=== PATIENT | male | born 1990 | race Caucasian/White ===

== ENCOUNTER 2021-08-03 15:22 | Emergency (ER) | payer MEDICAID, OTHER ==
[~2021-08-03] VITALS: Ht 167.7 cm; Wt 68.1 kg
[~2021-08-03 15:22] MED LIST: ACHD5005 PO; ACYC200C PO; ACYC2CRE TP; IBP800T PO; PENI500T PO
--- NOTE | 2021-08-03 15:39 | ED Syncope ---
General Chief Complaint: Dizziness/Syncope Stated Complaint: GEN WEAKNESS; SYNCOPAL EPISODE Source of Information: Patient, EMS Exam Limitations: No Limitations History of Present Illness Date Seen by Provider: Aug 03, 2021 Time Seen by Provider: 15:18 Initial Comments 31-year-old male with what he states only history is mental health issues coming in via EMS due to exhaustion. The patient states he was in [place], his son is in [place], and he does not have a vehicle and wanted to see him. He began to walk to [place] today because he thought it was cool enough. He became very hot and tired, and says he might of passed out. He then called EMS. On EMS arrival he was walking already, and sat down when he saw them. Vitals were normal per EMS. He did not receive any medications. He is not having any chest pain, shortness of breath, focal weakness or numbness, abdominal pain, nausea, vomiting, diarrhea, fever, chills, or any other concerns. He states he feels back to his baseline right now and was just tired. Of note, his heart rate has been low, and he states is constantly jogging and exercising. Allergies and Home Medications Allergies Coded Allergies: Ziprasidone Mesylate (Verified Allergy, 02/21/13) ziprasidone HCl (Verified Allergy, 02/21/13) Patient Home Medication List Home Medication List Reviewed: Yes Review of Systems Constitutional: No chills, No fever EENTM: No blurred vision Respiratory: No cough, No short of breath Cardiovascular: No chest pain Gastrointestinal: No abdominal pain, No diarrhea, No nausea, No vomiting Genitourinary: No dysuria Musculoskeletal: No back pain, No joint pain Skin: No rash Psychiatric/Neurological: No Symptoms Reported All Other Systems Reviewed Negative Unless Noted: Yes Past Ptqiwes-Cfqpwc-Rlcnzc Hx Patient Social History Tobacco Use?: Yes Tobacco type used: Cigarettes Smoking Status: Current Everyday Smoker Use of E-Cig and/or Vaping dev: No Substance use?: Yes Substance type: Marijuana Alcohol Use?: No Pt feels they are or have been: No Immunizations Up To Date Tetanus Booster (TDap): Unknown Past Medical History Sexually Transmitted Disease: Yes (HERPES) Anxiety, Bipolar, Personality Disorder Herpes Adverse Reaction/Blood Tranf: No Physical Exam Vital Signs Capillary Refill : Height, Weight, BMI Height: 5'7" Weight: 140lbs. oz. [id number]; BMI Method:Stated General Appearance: No Apparent Distress, WD/WN HEENT: PERRL/EOMI, Normal ENT Inspection, Pharynx Normal Neck: Full Range of Motion, Normal Inspection, Non Tender, Supple Cardiovascular: No Edema, No Murmur, Normal Peripheral Pulses, Bradycardia Respiratory: Chest Non Tender, Lungs Clear, Normal Breath Sounds, No Accessory Muscle Use, No Respiratory Distress Gastrointestinal: Normal Bowel Sounds, Non Tender, Soft; No Distended, No Guarding, No Rebound Back: Normal Inspection, No CVA Tenderness, No Vertebral Tenderness Extremities: Normal Capillary Refill, Normal Inspection, Normal Range of Motion, Non Tender, No Calf Tenderness, No Pedal Edema Neurologic/Psychiatric: Alert, Oriented x3, No Motor/Sensory Deficits, Normal Mood/Affect Cranial Nerves: Normal Hearing, Normal Speech, PERRL Coordination/Gait: Normal Finger to Nose, Normal Gait Motor/Sensory: No Motor Deficit Skin: Normal Color, Warm/Dry Lymphatic: No Adenopathy Progress/Results/Core Measures Results/Orders My Orders Orders - LIMA VARNER MD Ekg Tracing (08/03/21 15:32) Progress Progress Note : Progress Note 31-year-old male with above history coming in after he was tired trying to walk from [place] to [place] with an episode of lightheadedness. He was ambulatory on EMS arrival and has been neuro intact since then. GCS is 15, neuro intact here, vitals stable. He is bradycardic, but exercises quite frequently and likely is related to his cardiac conditioning. His blood pressure is normal despite the bradycardia further supporting this. EKG sinus bradycardia with early repolarization but no significant abnormalities. He is eating and drinking well in the emergency department. He is ambulatory. I believe he is stable for discharge to see his son given that was his original goal. He was sent home with strict return precautions Initial ECG Impression Date: Aug 03, 2021 Initial ECG Impression Time: 15:25 Initial ECG Rate: 42 Initial ECG Rhythm: S.Brice Initial ECG Intervals: Normal Comment Sinus bradycardia with a rate of 42, narrow QRS, normal axis, no significant ST changes or T wave abnormalities that would be concerning for ischemia, no delta wave, no Brugada sign, QTC of 379 Departure Impression Primary Impression: Near syncope Additional Impression: Exhaustion Disposition: 01 HOME, SELF-CARE Condition: Stable Departure-Patient Inst. Decision time for Depature: 15:38 Referrals: NO,LOCAL PHYSICIAN (PCP/Family) Primary Care Physician Patient Instructions: Syncope (Fainting) (DC), Fatigue ED Add. Discharge Instructions: You are seen in the emergency department because you had walked a long way, were exhausted, and passed out. Your EKG shows that your heart rate is slow but your blood pressure is normal. 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 Drink plenty of water today and if you begin having any chest pain, shortness of breath, weakness, or any other concerns and please come back to the ER. All discharge instructions reviewed with patient and/or family. Voiced underst anding. LIMA VARNER MD Aug 03, 2021 15:39
[2021-08-03 15:43] VITALS: BP 111/63
== END 2021-08-03 15:41 | disposition home or self-care (01) ==
LOC: EDUNIT# 15:22 → ER FS 15:25
DX: R55 Syncope and collapse (principal); R53.83 Other fatigue; F17.210 Nicotine dependence, cigarettes, uncomplicated
CPT/HCPCS: 93005

== ENCOUNTER 2022-01-30 05:31 | Emergency (ER) | payer SELFPAY ==
[~2022-01-30] VITALS: Ht 167.7 cm; Wt 76.3 kg
--- NOTE | 2022-01-30 06:40 | ED Psychosocial ---
General Chief Complaint: Substance Abuse Stated Complaint: AMS Nursing Triage Note: Patient presents ambulatory to ED being brought by POV. Pt reports feeling anxious and uncertain as he took a street drug in pill form about 0100. Pt states it reminds him of Meth as he was prior user. Pt did a couple lines of cocaine earlier this morning. Pt has mental health history and quit all meds. Source: patient Exam Limitations: no limitations History of Present Illness Date Seen by Provider: Jan 30, 2022 Time Seen by Provider: 06:00 Initial Comments Patient is a 30-year-old male who presents with hallucinations delusions paranoia after being released from [facility] and using cocaine yesterday and an swallowing an unknown pill. Patient has history of mental illness and is currently off his meds. He is in town visiting his father and has plans to follow-up with his global chief experience officer later today and to travel to [facility] to reestablish as a patient at [facility]. No HI or SI. No other medical complaints or symptoms Timing/Duration: yesterday Severity: moderate Associated Symptoms: other Allergies and Home Medications Allergies Coded Allergies: Ziprasidone Mesylate (Verified Allergy, 02/21/13) ziprasidone HCl (Verified Allergy, 02/21/13) Patient Home Medication List Home Medication List Reviewed: Yes Review of Systems Constitutional: see HPI EENTM: see HPI Respiratory: see HPI Cardiovascular: see HPI Gastrointestinal: see HPI Genitourinary: see HPI Musculoskeletal: see HPI Skin: see HPI Psychiatric/Neurological: See HPI All Other Systems Reviewed Negative Unless Noted: Yes Past Kkpxlqx-Zxgtop-Xipruh Hx Patient Social History Tobacco Use?: Yes Tobacco type used: Cigarettes Smoking Status: Current Everyday Smoker Smokeless Tobacco Frequency: Unknown if Ever Used Use of E-Cig and/or Vaping Jeff: Unknown if Ever Used Substance use?: Yes Substance type: Methamphetamine, Other Additional substance use comme: Cocaine Substance frequency: Daily Alcohol Use?: Yes Alcohol type: Hard Liquor Alcohol Frequency: Couple times a week Pt feels they are or have been: No Immunizations Up To Date Tetanus Booster (TDap): Unknown Past Medical History Surgery/Hospitalization HX: Mental Health hx: Bipolar, Schizophrenia Sexually Transmitted Disease: Yes (HERPES) Anxiety, Bipolar, Personality Disorder Herpes Adverse Reaction/Blood Tranf: No Physical Exam Vital Signs - First Documented 01/30/22 05:35 Temp 36.7 Pulse 103 Resp 20 B/P (MAP) 139/93 (108) Pulse Ox 97 O2 Delivery Room Air Capillary Refill : Less Than 3 Seconds Height, Weight, BMI Height: 5'7" Weight: 140lbs. oz. [id number]; 27.00 BMI Method:Stated General Appearance: WD/WN, no apparent distress HEENT: PERRL/EOMI, normal ENT inspection Neck: full range of motion, supple Respiratory: lungs clear Cardiovascular: regular rate, rhythm Gastrointestinal: non tender, soft Neurologic/Psychiatric: alert, oriented x 3, other (No paranoia or delusions) Appearance/Memory: appropriate appearance, appropriate insight, no memory impairment Behavior/Eye Contact: cooperative, good eye contact Thoughts/Hallucinations: auditory hallucinations, delusions; No flight of ideas, No obsessive; paranoid; No persecution, No phobic, No tactile hallucinations, No visual hallucinations Skin: normal color Lymphatic: no adenopathy Progress/Results/Core Measures Results/Orders My Orders Orders - PAUL RAINEY DO Ekg Tracing (01/30/22 06:02) Vital Signs/I&O 01/30/22 05:35 Temp 36.7 Pulse 103 Resp 20 B/P (MAP) 139/93 (108) Pulse Ox 97 O2 Delivery Room Air Blood Pressure Mean: 108 Departure Communication (Admissions) EKG: Normal sinus rhythm, no acute ST-T wave changes Patient with acute psychosis, drug use and underlying mental illness. No HI SI. Patient has plan to follow-up with global chief experience officer after leaving emergency to her apartment and reestablishing is a mental health patient resuming meds in the [facility] later today. Impression Primary Impression: Hallucination Additional Impression: Drug use Disposition: 01 HOME, SELF-CARE Condition: Stable Departure-Patient Inst. Decision time for Depature: 06:40 Referrals: NO,LOCAL PHYSICIAN (PCP/Family) Primary Care Physician Patient Instructions: ALCOHOL AND SUBSTANCE ABUSE Add. Discharge Instructions: Please follow-up with your global chief experience officer and [facility] later today. Avoid drug use. All discharge instructions reviewed with patient and/or family. Voiced understanding. PAUL RAINEY DO Jan 30, 2022 06:40
[2022-01-30 06:45] VITALS: BP 129/94
== END 2022-01-30 06:45 | disposition home or self-care (01) ==
LOC: EDUNIT# 05:31 → ER FS 05:33
DX: R44.0 Auditory hallucinations (principal); F14.90 Cocaine use, unspecified, uncomplicated; F17.210 Nicotine dependence, cigarettes, uncomplicated
CPT/HCPCS: 93005